=== PATIENT | male | born 1950 | race Caucasian/White ===

== ENCOUNTER 2016-10-03 06:43 | Day surgery (SDC) | payer OTHER ==
[~2016-10-03] VITALS: Ht 190.5 cm; Wt 99.3 kg
[2016-10-03 07:03] VITALS: BP 132/93; PULSE 72; TEMP 98.7
[2016-10-03] MEDS ORDERED: PACERONE200 MG PO (07:36)
[2016-10-03] MEDS ORDERED: ELIQUIS 5MG PO (07:37)
[2016-10-03] MEDS ORDERED: LOPRESSOR 225 MG/TAB PO (07:38)
[2016-10-03] MEDS ORDERED: PRINZIDE 12.5 M1 TA1 PO (07:38)
[2016-10-03] MEDS ORDERED: K-TAB20 PO (07:40)
[2016-10-03] MEDS ORDERED: VIAGRA50 M1 PO (07:41)
[2016-10-03] MEDS ORDERED: FLOMAX 0.40.4 MG/CAP PO (07:41)
[2016-10-03] MEDS ORDERED: PRINIVIL20 MG PO (07:43)
[2016-10-03 08:20] VITALS: BP 110/75; PULSE 65
[2016-10-03 08:30] VITALS: BP 111/83; PULSE 66
[2016-10-03 08:45] VITALS: BP 104/75; PULSE 65
[2016-10-03 09:00] VITALS: BP 120/76; PULSE 63
[2016-10-03 12:22] VITALS: BP 130/90; PULSE 64
== END 2016-10-03 09:15 | disposition home or self-care (01) ==
LOC: SDCO 06:43
DX: Z12.11 Encounter for screening for malignant neoplasm of colon (principal); R19.7 Diarrhea, unspecified; I10 Essential (primary) hypertension
CPT/HCPCS: J2250; J3010; J7030

== ENCOUNTER 2019-12-19 20:46 | Inpatient (IN) | payer OTHER ==
[~2019-12-19] VITALS: Ht 190.5 cm; Wt 83.8 kg
[~2019-12-19 20:46] MED LIST: ELIQUIS 5MG PO; FLOMAX 0.40.4 MG/CAP PO; K-TAB20 PO; LOPRESSOR 225 MG/TAB PO; PACERONE200 MG PO; PRINIVIL20 MG PO; PRINZIDE 12.5 M1 TA1 PO; VIAGRA50 M1 PO
[2019-12-19 21:19] LABS: BASO % 0.2 % (0.0-2.0); EOS % 0.1 % (0-4.0); GRAN # 13.3 (1.4-6.5); GRAN % 84.4 % (42.2-75.2); HEMATOCRIT 49.8 % (42.0-52.0); HEMOGLOBIN 17.4 g/dl (13.5-18.0); LYMPH # 1.8 (1.2-3.4); LYMPH % 11.2 % (20.0-51.0); MEAN CELL VOLUME 91 fl (80.0-100.0); MEAN CORPUSCULAR HEMOGLOBIN 32 pg (27.0-31.0); MEAN CORPUSCULAR HGB CONC 35 g/dl (33.0-37.0); MEAN PLATELET VOLUME 9.5 fl (7.4-10.4); MONO # 0.6 (0.1-0.6); MONO % 3.8 % (1.7-9.3); PLATELET COUNT 237 K/mm3 (130-400); RED BLOOD COUNT 5.45 M/mm3 (4.20-5.60); REDCELL DISTRIBUTION WIDTH-CV 12.8 % (11.5-14.5)
[2019-12-19 21:32] LABS: ALANINE AMINOTRANSFERASE 20 U/L (4-49); ALBUMIN 4.9 gm/dL (3.5-5.0); ALKALINE PHOSPHATASE 77 U/L (50-136); ANION GAP 10 mmol/L (7-16); AST,SGOT 27 U/L (15-37); BILIRUBIN,TOTAL 0.7 mg/dL (0.0-1.0); BLOOD UREA NITROGEN 21 mg/dL (9-20); CALCIUM 10.1 mg/dL (8.4-10.2); CARBON DIOXIDE 28 mmol/L (22-30); CHLORIDE 102 mmol/L (98-107); GLUCOSE 162 mg/dL (74-106); LIPASE 60 U/L (23-300); POTASSIUM 3.6 mmol/L (3.4-5.0); SODIUM 139 mmol/L (137-145); TOTAL PROTEIN 8.7 gm/dL (6.4-8.2)
[2019-12-19 21:33] LABS: C-REACTIVE PROTEIN 0.5 mg/dL (0.0-0.9)
[2019-12-19 21:35] LABS: COLLECTION METHOD CLEAN CATCH
[2019-12-19 21:43] LABS: TROPONIN-I < 0.012 ng/mL (0.000-0.035)
[2019-12-19 21:48] LABS: MUCOUS Present /lpf; PH 7 (5-8); SQUAMOUS EPITHELIAL None Seen /hpf; URINE APPEARANCE Cloudy; URINE BACTERIA Rare /hpf; URINE BILIRUBIN Negative (NEGATIVE); URINE BLOOD 2+ (NEGATIVE); URINE COLOR Yellow; URINE GLUCOSE 1+ (NEGATIVE); URINE KETONE 1+ (NEGATIVE); URINE LEUKOCYTE ESTERASE 1+ (NEGATIVE); URINE NITRATE Negative (NEGATIVE); URINE PROTEIN(semi-quant) 1+ (NEGATIVE); URINE UROBILINOGEN Negative (NEGATIVE)
[2019-12-20] VITALS (7 sets, daily range): BP systolic 132–178; BP diastolic 82–91; PULSE 68–75; TEMP 97.4–98.8
[2019-12-20] MEDS ORDERED: GLUCOPHAGE500 MG/TAB PO (00:09)
--- NOTE | 2019-12-20 00:32 | NUR ---
Arrived to surgical floor at 2345. Assessment complete. Lungs clear. Heart sounds normal. Bowels hypoactive. Pulses present throughout. No edema noted. IV left AC infusing without complications. Med rec complete-patient unsure on 4 medications which were left with attention required. Dr. Gonzalez notified of patient arrival to floor and updated on medications. Will hold meds for now. Patient orientated to surgical floor. All questions answered. Denies needs at this time. Call light in reach.
--- NOTE | 2019-12-20 02:00 | NUR ---
Resting in bed asleep. Call light in reach.
--- NOTE | 2019-12-20 05:30 | NUR ---
Patient required x1 dose of dilaudid for pain control. Otherwise uneventful night. Resting in bed this Am. Call light in reach.
--- NOTE | 2019-12-20 06:16 | NUR ---
Patient reported 3/10 aggervating ABD pain that is causing patient inability to rest. Provided with PRN dilaudid at this time.
--- NOTE | 2019-12-20 06:51 | NUR ---
Report given to MONTANA Soler
[2019-12-20 10:00] LABS: BASO % 0.2 % (0.0-2.0); EOS # 0.1 (0.0-0.7); EOS % 0.9 % (0-4.0); GRAN # 9.4 (1.4-6.5); GRAN % 78.4 % (42.2-75.2); HEMATOCRIT 47.1 % (42.0-52.0); HEMOGLOBIN 16.3 g/dl (13.5-18.0); LYMPH # 1.8 (1.2-3.4); LYMPH % 15.1 % (20.0-51.0); MEAN CELL VOLUME 93 fl (80.0-100.0); MEAN CORPUSCULAR HEMOGLOBIN 32 pg (27.0-31.0); MEAN CORPUSCULAR HGB CONC 35 g/dl (33.0-37.0); MEAN PLATELET VOLUME 9.5 fl (7.4-10.4); MONO # 0.6 (0.1-0.6); MONO % 5.2 % (1.7-9.3); PLATELET COUNT 206 K/mm3 (130-400); RED BLOOD COUNT 5.05 M/mm3 (4.20-5.60)
[2019-12-20 10:22] LABS: CALCIUM 9.1 mg/dL (8.4-10.2); CREATININE, serum 0.64 (0.66-1.25); POTASSIUM 3.3 mmol/L (3.4-5.0)
--- NOTE | 2019-12-20 12:22 | NUR ---
First visit from the battery builder. No needs right now.
--- NOTE | 2019-12-20 16:23 | NUR ---
EMMANUEL met with the patient to discuss discharge plan. The patient lives alone in [place]. He states that his sister, Wendy (ph#[phone]), also lives in [place]. He reports independence with ADLs and does not have any DME. The patient's PCP is Dr. Guerra at the [facility] and he also receives his medications through the mail from the [facility]. He reports no difficulties obtaining his meds. The patient does not have advanced directives completed, but he was interested in obtaining a form for DPOA-[facility]. EMMANUEL provided. The patient states that he is not . He states that he has three children: Gaston, Martin, and Majo. The patient plans to return home upon discharge. The patient notified EMMANUEL that he has some home meds that he did not bring in and has not taken since being here. The patient then got on his phone and stated that he is calling his sister to ask her to bring them in. EMMANUEL notified the patient's RN of this.
--- NOTE | 2019-12-20 18:41 | NUR ---
Patient resting in bed at this time. Patient is alert and oriented, answers questions appropriately. IVF infusing per order. PRN pain medications given once during shift and PRN antiemetic given once. Patient reports intermittently feeling very well and ill, no bowel movements reported. Patient denies pain at this time, call light within reach.
--- NOTE | 2019-12-20 20:00 | NUR ---
Pt. laying in bed at this time. Pt. is A&OX3, assessment complete. IV to lt. ac patent, IV fluids infusing per orders. Pt. reports pain at a 6 on pain scale, will give pain meds per orders. Pt. denies further needs, call light within reach.
[2019-12-21] VITALS (11 sets, daily range): BP systolic 140–170; BP diastolic 64–87; PULSE 62–72; TEMP 98–98.6
[2019-12-21 06:39] LABS: BASO % 0.3 % (0.0-2.0); EOS # 0.2 (0.0-0.7); EOS % 1.4 % (0-4.0); GRAN % 76.1 % (42.2-75.2); HEMATOCRIT 45.6 % (42.0-52.0); HEMOGLOBIN 15.8 g/dl (13.5-18.0); LYMPH # 1.8 (1.2-3.4); LYMPH % 15.4 % (20.0-51.0); MEAN CELL VOLUME 93 fl (80.0-100.0); MEAN CORPUSCULAR HEMOGLOBIN 32 pg (27.0-31.0); MEAN CORPUSCULAR HGB CONC 35 g/dl (33.0-37.0); MEAN PLATELET VOLUME 9.5 fl (7.4-10.4); MONO # 0.8 (0.1-0.6); MONO % 6.5 % (1.7-9.3); PLATELET COUNT 188 K/mm3 (130-400); RED BLOOD COUNT 4.88 M/mm3 (4.20-5.60); REDCELL DISTRIBUTION WIDTH-CV 12.9 % (11.5-14.5)
[2019-12-21 06:53] LABS: CALCIUM 8.8 mg/dL (8.4-10.2); CREATININE, serum 0.66 (0.66-1.25); POTASSIUM 3.4 mmol/L (3.4-5.0)
[2019-12-21] MEDS ORDERED: NORVASC 10MG10 MG PO (08:36)
[2019-12-21] MEDS ORDERED: COREG12.5 MG PO (08:39)
[2019-12-21] MEDS ORDERED: VIAGRA100 M1 (08:43)
[2019-12-21] MEDS ORDERED: ZOCOR 20MG20 MG PO (08:45)
--- NOTE | 2019-12-21 09:00 | NUR ---
Patient resting in bed at this time. Patient is alert and oriented, answers questions appropriately. Patient c/o nausea and pain, but declines PRN medication. Patient up to commode and reports passing flatus but no bowel movement. Patient denies further needs at this time, call light within reach.
--- NOTE | 2019-12-21 12:55 | NUR ---
Patient left floor via bed with pre op staff.
--- NOTE | 2019-12-21 15:25 | NUR ---
Patient arrived to floor via bed from PACU. Patient is alert and oriented, answers questions appropriately. Post op checks initiated. Patient denies pain or nausea, denies needs at this time.
--- NOTE | 2019-12-21 18:18 | NUR ---
Patient resting in bed at this time, remains alert and oriented, continues to deny pain, nausea, or needs. Tolerating PO fluids well, call light within reach.
--- NOTE | 2019-12-21 20:30 | NUR ---
Assessment complete. Resting in bed. Up ad jocelyn in room. Denies pain/discomfort. Denies needs at this time
[2019-12-22 00:14] VITALS: BP 133/73; PULSE 65; TEMP 98.7
--- NOTE | 2019-12-22 02:31 | NUR ---
report received from MONTANA Dumas. care assumed at this time.
[2019-12-22 04:37] VITALS: BP 143/85; PULSE 69; TEMP 98.5
[2019-12-22 07:52] VITALS: BP 162/83; PULSE 65; TEMP 98.2
--- NOTE | 2019-12-22 10:00 | NUR ---
Patient resting in bed at this time. Patient is alert and oriented, answers questions appropriately. Diet changed to general, breakfast tray ordered. Patient denies pain or nausea, Bowel sounds slow but present. Lap sites on abdomen CDI. Patient denies further needs at this time, call light within reach.
[2019-12-22 11:47] VITALS: BP 163/77; PULSE 66; TEMP 97.9
[2019-12-22 17:04] VITALS: BP 158/82; PULSE 62; TEMP 98.4
--- NOTE | 2019-12-22 18:19 | NUR ---
Discharge instructions reviewed with patient, verbalized understanding. Discharged ambulatory to auto/home with family at 1810.
== END 2019-12-22 18:05 | disposition home or self-care (01) | DRG 357 ==
LOC: COL.ER 20:46 → SURG 22:34
PROVIDERS: Emergency Medicine; ADMIT Surgery
PROC: 0DJW4ZZ Inspection of Peritoneum, Percutaneous Endoscopic Approach (ICD-10-PCS; principal; 2019-12-21 13:30)
DX: K56.51 Intestinal adhesions [bands], with partial obstruction (principal); R18.8 Other ascites; Z87.891 Personal history of nicotine dependence
CPT/HCPCS: A4314; J0360; J0696; J1170; J1956; J2405; J2704; J2710; J3010; J3480; J7030; Q9967